=== PATIENT | male | born 1955 | race Caucasian/White ===

== ENCOUNTER → 2021-11-09 08:51 | Outpatient (BNVA) | payer OTHER, SELFPAY | PROVIDERS: PCP Internal Medicine; Visit Provider Urology ==

== ENCOUNTER 2022-05-22 10:41 | Outpatient (REF) | payer OTHER, SELFPAY ==
[2022-05-22 12:31] LABS: Prostate Specific Antigen 6.23 ng/mL (<0.05-4.0)
== END 2022-05-22 10:42 | disposition home or self-care (01) ==
LOC: HO.LAB 10:41
PROVIDERS: PCP Internal Medicine; Visit Provider Urology
DX: Z12.5 Encounter for screening for malignant neoplasm of prostate (principal); R97.20 Elevated prostate specific antigen [PSA]
CPT/HCPCS: 36415; 84153

== ENCOUNTER 2022-09-21 13:19 | Outpatient (REF) | payer OTHER, SELFPAY ==
[2022-09-21 16:09] LABS: PSA,Total (Free>4and<10) 4.55 ng/mL (0.00-4.00)
[2022-09-26 07:29] LABS: Free Prostate Spec Ag 0.5 ng/mL; Percent Free Prostate Spec Ag 10 % (calc) (>25); Prostate Specific Ag Total 4.8 ng/mL (< OR = 4.0)
== END 2022-09-21 13:20 | disposition home or self-care (01) ==
LOC: HO.LAB 13:19
PROVIDERS: Urology; PCP Internal Medicine; Visit Provider Psychiatry & Neurology Neurology
DX: Z12.5 Encounter for screening for malignant neoplasm of prostate (principal); R97.20 Elevated prostate specific antigen [PSA]
CPT/HCPCS: 36415; 84153; 84154

== ENCOUNTER → 2022-09-29 09:09 | Outpatient (BNVA) | payer OTHER, SELFPAY | PROVIDERS: PCP Internal Medicine; Visit Provider Urology | DX: Z13.89 Encounter for screening for other disorder (principal) ==

== ENCOUNTER 2023-04-17 08:41 | Outpatient (AMB) | payer OTHER, SELFPAY ==
--- NOTE | 2023-04-17 08:49 | MHC.OFFVIS ---
Intake Intake Visit Reasons: 6M PSA(set) Intake Note: Patient is present for Follow Up PSA Urology Med: Finasteride, Sildenafil Antibiotic Allergy:none Blood Thinner: None Allergies No Known Allergies Allergy (Verified 04/17/23 08:49) Medication List - Last Reconciled 04/17/23 by Benny Banegas MD atorvastatin 20 mg PO DAILY finasteride 5 mg PO DAILY 90 days hydrochlorothiazide 25 mg PO DAILY sildenafil 100 mg PO DAILY PRN 30 days HPI HPI Comments History of Present Illness Details Quique is a very pleasant male. He is a patient of Dr. Alexis. He is seen for the following urologic conditions - elevated PSA - erectile dysfunction PSA slight rise from 4.5-5.2 On finasteride Recommend prostate MRI Prior equivocal DNA test on urine Elevated PSA Recent PSA test 4.2 with PCP No family history prostate cancer Minimal family history enlarged prostate PSA 11/13 4.2, 05/15 6.2, 12.22 4.5 F10%, , 03/16 5.2 F 12% on finasteride ExoUrine DNA test 10/26 20 Erectile dysfunction Progressive Able to obtain but cannot maintain erection with adequate rigidity No prior use of medications Trial sildenafil Review of Systems Const Denies chills and Denies fever(s) Card Reports no additional complaints and Denies syncope Resp Denies cough GI Denies abdominal pain and Denies heartburn Reports as per HPI and Denies change in libido Neuro Denies syncope Psych Denies change in libido Endo Denies change in libido Physical Exam Const General: cooperative, healthy appearing, comfortable and no acute distress Orientation/consciousness: patient oriented x3 HEENT Face and sinus: Yes normal facial exam Mouth: moist mucous membranes Neck Neck: Yes normal visual inspection, Yes full ROM and Yes trachea midline Chest Chest palpation & inspection: normal inspection of the chest Resp Effort & Inspection: normal respiratory effort, able to speak in complete sentences and no respiratory distress GI Inspection: Yes normal to inspection Back/Spine/Pelvis Cervical Spine: normal cervical lordosis Thoracic/Lumbar Spine: thoracic and lumbar spine normal to inspection Skin General skin exam: no rashes or lesions noted Neuro General: patient oriented x3, gait normal, tone normal and moves all extremities Extrem General: Yes normal to inspection and Yes capillary refill normal Assessment & Plan Assessment & Plan (1) Erectile dysfunction: Code(s): N52.9 - Male erectile dysfunction, unspecified (2) Elevated PSA: Code(s): R97.20 - Elevated prostate specific antigen [PSA] Plan Prostate MRI Orders: Orders Blood Urea Nitrogen Today R97.20 - Elevated prostate specific antigen [PSA] Creatinine Today R97.20 - Elevated prostate specific antigen [PSA] MR pelvis wo/w con Today R97.20 - Elevated prostate specific antigen [PSA] Patient Instructions: Imaging studies, laboratory and physical exam results were discussed and reviewed in detail. No major barriers to patient understanding were identified. An opportunity to ask questions regarding the treatment plan was provided. All questions were answered. The patient expressed understanding and agreement with the above treatment plan. The patient is aware they should contact our office by phone for worsening of their current condition or the appearance of new urologic symptoms. Compliance is encouraged with any medications and followup testing that is ordered. It is a privilege to participate in the urologic care of your patient. If you have any questions or concerns regarding treatment for the above conditions, or other urologic issues, please do not hesitate to contact me. The office telephone contact is [phone]. This note is constructed using voice recognition software. While every effort has been made to ensure accuracy casing crew pusher errors may have been included. Yours sincerely, Dr Benny Banegas MD, [facility] - Urology Providers of Expert, Compassionate Care for the Genitourinary System Coding Level of Care Code Est Pt Level 3 (03100) Diagnoses Erectile dysfunction N52.9 Elevated PSA R97.20
== END 2023-04-17 09:33 | disposition home or self-care (01) ==
PROVIDERS: Visit Provider Urology
DX: N52.9 Male erectile dysfunction, unspecified (principal); R97.20 Elevated prostate specific antigen [PSA]
CPT/HCPCS: 99213

== ENCOUNTER → 2023-04-17 08:41 | Outpatient (BNVA) | payer OTHER, SELFPAY | PROVIDERS: Visit Provider Urology ==

== ENCOUNTER 2023-05-23 08:25 | Outpatient (AMB) | payer OTHER, SELFPAY ==
--- NOTE | 2023-05-23 08:37 | MHC.OFFVIS ---
Intake Intake Visit Reasons: 1m/MRI(set) Intake Note: Patient is present for Follow Up MRI Urology Med: Finasteride, Sildenafil Antibiotic Allergy:None Blood Thinner: None Pharmacy: [facility] Allergies No Known Allergies Allergy (Verified 05/23/23 08:39) Medication List - Last Reconciled 05/23/23 by Benny Banegas MD atorvastatin 20 mg PO DAILY finasteride 5 mg PO DAILY 90 days hydrochlorothiazide 25 mg PO DAILY meloxicam 15 mg PO DAILY sildenafil 100 mg PO DAILY PRN 30 days HPI HPI Comments History of Present Illness Details Quique is a very pleasant male. He is a patient of Dr. Mesa. He is seen for the following urologic conditions - elevated PSA - erectile dysfunction MRI - 30 g, PI-RADS 3 1.6 cm equivocal lesion Discussed options Recommend repeat PSA in 4 months Prior equivocal DNA test on urine Elevated PSA Recent PSA test 4.2 with PCP No family history prostate cancer Minimal family history enlarged prostate PSA 11/13 4.2, 05/15 6.2, 09/14 4.5 F10%, , 03/16 5.2 F 12% on finasteride ExoUrine DNA test 10/26 20 Erectile dysfunction Progressive Able to obtain but cannot maintain erection with adequate rigidity No prior use of medications Trial sildenafil Review of Systems Const Denies chills and Denies fever(s) Card Reports no additional complaints and Denies syncope Resp Denies cough GI Denies abdominal pain and Denies heartburn Reports as per HPI and Denies change in libido Neuro Denies syncope Psych Denies change in libido Endo Denies change in libido Physical Exam Const General: cooperative, healthy appearing, comfortable and no acute distress Orientation/consciousness: patient oriented x3 HEENT Face and sinus: Yes normal facial exam Mouth: moist mucous membranes Neck Neck: Yes normal visual inspection, Yes full ROM and Yes trachea midline Chest Chest palpation & inspection: normal inspection of the chest Resp Effort & Inspection: normal respiratory effort, able to speak in complete sentences and no respiratory distress GI Inspection: Yes normal to inspection Back/Spine/Pelvis Cervical Spine: normal cervical lordosis Thoracic/Lumbar Spine: thoracic and lumbar spine normal to inspection Skin General skin exam: no rashes or lesions noted Neuro General: patient oriented x3, gait normal, tone normal and moves all extremities Extrem General: Yes normal to inspection and Yes capillary refill normal Assessment & Plan Assessment & Plan (1) Elevated PSA: Code(s): R97.20 - Elevated prostate specific antigen [PSA] (2) Erectile dysfunction: Code(s): N52.9 - Male erectile dysfunction, unspecified Plan Four month follow-up PSA Orders: Orders PSA,Total (Free>4and<10) 4 Months R97.20 - Elevated prostate specific antigen [PSA] Patient Instructions: Imaging studies, laboratory and physical exam results were discussed and reviewed in detail. No major barriers to patient understanding were identified. An opportunity to ask questions regarding the treatment plan was provided. All questions were answered. The patient expressed understanding and agreement with the above treatment plan. The patient is aware they should contact our office by phone for worsening of their current condition or the appearance of new urologic symptoms. Compliance is encouraged with any medications and followup testing that is ordered. It is a privilege to participate in the urologic care of your patient. If you have any questions or concerns regarding treatment for the above conditions, or other urologic issues, please do not hesitate to contact me. The office telephone contact is [phone]. This note is constructed using voice recognition software. While every effort has been made to ensure accuracy cascade operator errors may have been included. Yours sincerely, Dr Benny Banegas MD, [facility] - Urology Providers of Expert, Compassionate Care for the Genitourinary System Coding Level of Care Code Est Pt Level 3 (28701) Diagnoses Elevated PSA R97.20 Erectile dysfunction N52.9
== END 2023-05-23 09:29 | disposition home or self-care (01) ==
PROVIDERS: PCP Internal Medicine; Visit Provider Urology
DX: R97.20 Elevated prostate specific antigen [PSA] (principal); N52.9 Male erectile dysfunction, unspecified
CPT/HCPCS: 99213

== ENCOUNTER → 2023-05-23 08:25 | Outpatient (BNVA) | payer OTHER, SELFPAY | PROVIDERS: PCP Internal Medicine; Visit Provider Urology ==

== ENCOUNTER 2023-09-03 07:35 | Outpatient (REF) | payer OTHER, SELFPAY ==
[2023-09-03 08:51] LABS: Blood Urea Nitrogen 19 mg/dL (9-16); Estimated Glomerular Filt Rate > 60
[2023-09-03 09:14] LABS: PSA,Total (Free>4and<10) 3.78 ng/mL (0.00-4.00)
== END 2023-09-03 07:36 | disposition home or self-care (01) ==
LOC: HO.LAB 07:35
PROVIDERS: PCP Physician Assistant; Visit Provider Urology
DX: Z12.5 Encounter for screening for malignant neoplasm of prostate (principal); R97.20 Elevated prostate specific antigen [PSA]
CPT/HCPCS: 36415; 82565; 84153; 84520

== ENCOUNTER 2023-09-11 10:26 | Outpatient (AMB) | payer OTHER, SELFPAY ==
--- NOTE | 2023-09-11 10:28 | MHC.OFFVIS ---
Intake Intake Visit Reasons: 4m/PSA(set) Intake Note: Patient is Present for Telephone Follow Up For Urology Med: Finasteride, Sildenafil Antibiotic Allergy: None Blood Thinner: None Allergies No Known Allergies Allergy (Verified 09/11/23 10:30) Medication List - Last Reconciled 09/11/23 by Benny Banegas MD atorvastatin 20 mg PO DAILY finasteride 5 mg PO DAILY 90 days hydrochlorothiazide 25 mg PO DAILY meloxicam 15 mg PO DAILY sildenafil 100 mg PO DAILY PRN 30 days HPI HPI Comments History of Present Illness Details Quique is a very pleasant male. He is a patient of Dr. Mesa. He is seen for the following urologic conditions - elevated PSA - erectile dysfunction Telemedicine Evaluation 15 min Consultation [employer] Vilma Video PSA 09/15 3.8 Stable Continue finasteride 6 month follow-up MRI - 30 g, PI-RADS 3 1.6 cm equivocal lesion Prior equivocal DNA test on urine Elevated PSA Recent PSA test 4.2 with PCP No family history prostate cancer Minimal family history enlarged prostate PSA 11/13 4.2, 05/15 6.2, 09/14 4.5 F10%, 03/16 5.2 F 12% on finasteride ExoUrine DNA test 10/26 20 Erectile dysfunction Progressive Able to obtain but cannot maintain erection with adequate rigidity No prior use of medications Trial sildenafil Review of Systems Const All systems reviewed & are unremarkable except as noted in HPI and below Reports no additional complaints Resp Reports no additional complaints GI Reports no additional complaints Reports as per HPI Musc Reports no additional complaints Physical Exam Telemedicine evaluation Appropriate responses Regular breathing rate and rhythm HEENT Head: Yes normal to inspection Ears: hearing grossly normal bilaterally Eyes General: appearance normal, both eyes and all related structures Neck Neck: Yes normal visual inspection Chest Chest palpation & inspection: normal inspection of the chest Resp Effort & Inspection: normal respiratory effort and able to speak in complete sentences Assessment & Plan Assessment & Plan (1) Erectile dysfunction: Code(s): N52.9 - Male erectile dysfunction, unspecified (2) Elevated PSA: Code(s): R97.20 - Elevated prostate specific antigen [PSA] Plan 6m PSA Medications: Refilled finasteride 5 mg PO DAILY 90 tabs 1RF 90 days C61 - Malignant neoplasm of prostate, R97.20 - Elevated prostate specific antigen [PSA] Patient Instructions: Imaging studies, laboratory and physical exam results were discussed and reviewed in detail. No major barriers to patient understanding were identified. An opportunity to ask questions regarding the treatment plan was provided. All questions were answered. The patient expressed understanding and agreement with the above treatment plan. The patient is aware they should contact our office by phone for worsening of their current condition or the appearance of new urologic symptoms. Compliance is encouraged with any medications and followup testing that is ordered. It is a privilege to participate in the urologic care of your patient. If you have any questions or concerns regarding treatment for the above conditions, or other urologic issues, please do not hesitate to contact me. The office telephone contact is [phone]. This note is constructed using voice recognition software. While every effort has been made to ensure accuracy surgical garment fitter errors may have been included. Yours sincerely, Dr Benny Banegas MD, [facility] - Urology Providers of Expert, Compassionate Care for the Genitourinary System Telehealth Telehealth Location of provider rendering services: practice address Location of patient: address on file Patient Identification confirmed using: Name, : Yes Telehealth method: video Patient verbally consented to treatment: Yes Patient verbally consented to billing insurance company: Yes Patient informed of any privacy concerns related to visit: Yes Coding Level of Care Code Tele Est Pt Level 3 (32912) Diagnoses Erectile dysfunction N52.9 Elevated PSA R97.20
== END 2023-09-11 11:16 | disposition home or self-care (01) ==
LOC: HO.HUSH 10:26
PROVIDERS: PCP Physician Assistant; Visit Provider Urology
DX: N52.9 Male erectile dysfunction, unspecified (principal); R97.20 Elevated prostate specific antigen [PSA]
CPT/HCPCS: 99213

== ENCOUNTER → 2023-09-11 10:26 | Outpatient (BNVA) | payer OTHER, SELFPAY | PROVIDERS: PCP Physician Assistant; Visit Provider Urology ==

== ENCOUNTER 2024-03-06 15:32 | Outpatient (REF) | payer OTHER, SELFPAY | END 2024-03-06 15:33 | disposition home or self-care (01) | LOC: HO.LAB 15:32 | PROVIDERS: PCP Physician Assistant; Visit Provider Urology | DX: R97.20 Elevated prostate specific antigen [PSA] (principal); Z12.5 Encounter for screening for malignant neoplasm of prostate | CPT/HCPCS: 36415; 84153 ==

== ENCOUNTER 2024-03-14 10:44 | Outpatient (AMB) | payer OTHER, SELFPAY ==
--- NOTE | 2024-03-14 10:44 | MHC.OFFVIS ---
Intake Visit Reasons: 6m/PSA(set) Intake Note: Pt presents to the office today for a 6 month PSA follow up. Urology Meds:finasteride, sildenafil Blood thinners: None Allergies No Known Allergies Allergy (Verified 03/14/24 10:45) HPI Comments Details: Quique is a very pleasant male. He is a patient of Dr. Mesa. He is seen for the following urologic conditions - elevated PSA - erectile dysfunction PSA 09/15 3.8, 03/17 3.0 Stable Continue finasteride 6 month follow-up MRI - 30 g, PI-RADS 3 1.6 cm equivocal lesion Prior equivocal DNA test on urine Elevated PSA Recent PSA test 4.2 with PCP No family history prostate cancer Minimal family history enlarged prostate PSA 11/13 4.2, 05/15 6.2, 09/14 4.5 F10%, 03/16 5.2 F 12% on finasteride ExoUrine DNA test 10/26 20 Erectile dysfunction Progressive Able to obtain but cannot maintain erection with adequate rigidity No prior use of medications Trial sildenafil Review of Systems Const Denies chills and Denies fever(s) Card Reports no additional complaints and Denies syncope Resp Denies cough GI Denies abdominal pain and Denies heartburn Reports as per HPI and Denies change in libido Neuro Denies syncope Psych Denies change in libido Endo Denies change in libido Physical Exam Const General: cooperative, healthy appearing, comfortable and no acute distress Orientation/consciousness: patient oriented x3 HEENT Face and sinus: Yes normal facial exam Mouth: moist mucous membranes Neck Neck: Yes normal visual inspection, Yes full ROM and Yes trachea midline Chest Chest palpation & inspection: normal inspection of the chest Resp Effort & Inspection: normal respiratory effort, able to speak in complete sentences and no respiratory distress GI Inspection: Yes normal to inspection Back/Spine/Pelvis Cervical Spine: normal cervical lordosis Thoracic/Lumbar Spine: thoracic and lumbar spine normal to inspection Skin General skin exam: no rashes or lesions noted Neuro General: patient oriented x3, gait normal, tone normal and moves all extremities Extrem General: Yes normal to inspection and Yes capillary refill normal Assessment & Plan Assessment & Plan (1) Erectile dysfunction: Code(s): N52.9 - Male erectile dysfunction, unspecified Category: Medical (2) Elevated PSA: Code(s): R97.20 - Elevated prostate specific antigen [PSA] Category: Medical Plan Six-month follow-up PSA tele Orders: Orders Prostate Specific Antigen 6 Months R97.20 - Elevated prostate specific antigen [PSA] Patient Instructions: Imaging studies, laboratory and physical exam results were discussed and reviewed in detail. No major barriers to patient understanding were identified. An opportunity to ask questions regarding the treatment plan was provided. All questions were answered. The patient expressed understanding and agreement with the above treatment plan. The patient is aware they should contact our office by phone for worsening of their current condition or the appearance of new urologic symptoms. Compliance is encouraged with any medications and followup testing that is ordered. It is a privilege to participate in the urologic care of your patient. If you have any questions or concerns regarding treatment for the above conditions, or other urologic issues, please do not hesitate to contact me. The office telephone contact is [phone]. This note is constructed using voice recognition software. While every effort has been made to ensure accuracy geospatial systems integrator errors may have been included. Yours sincerely, Dr Benny Banegas MD, [facility] - Urology Providers of Expert, Compassionate Care for the Genitourinary System Coding Level of Care Code Est Pt Level 3 (44512) Diagnoses Erectile dysfunction N52.9 Elevated PSA R97.20
== END 2024-03-14 11:43 | disposition home or self-care (01) ==
PROVIDERS: PCP Physician Assistant; Visit Provider Urology
DX: N52.9 Male erectile dysfunction, unspecified (principal); R97.20 Elevated prostate specific antigen [PSA]
CPT/HCPCS: 99213

== ENCOUNTER → 2024-03-14 10:44 | Outpatient (BNVA) | payer OTHER, SELFPAY | PROVIDERS: PCP Physician Assistant; Visit Provider Urology ==

== ENCOUNTER 2024-09-05 12:02 | Outpatient (REF) | payer OTHER, SELFPAY ==
[2024-09-05 13:56] LABS: Prostate Specific Antigen 4.04 ng/mL (<0.05-4.0)
== END 2024-09-05 12:03 | disposition home or self-care (01) ==
LOC: HO.LAB 12:02
PROVIDERS: PCP Internal Medicine; Visit Provider Urology
DX: R97.20 Elevated prostate specific antigen [PSA] (principal); Z12.5 Encounter for screening for malignant neoplasm of prostate
CPT/HCPCS: 36415; 84153

== ENCOUNTER 2024-09-12 08:40 | Outpatient (AMB) | payer OTHER, SELFPAY ==
--- NOTE | 2024-09-12 08:41 | A.OFFVIS_ITS ---
Intake Visit Reasons: 6m/PSA Intake Note: Patient is present for 6M/PSA Urology Medication:FINASTERIDE,SILDENAFIL Antibiotic Allergy:NONE Blood Thinner:NONE [employer] Sales Consultant Required: No Allergies No Known Allergies Allergy (Verified 09/12/24 08:42) HPI Comments Details: Quique is a very pleasant male. He is a patient of Dr. Mesa. He is seen for the following urologic conditions - elevated PSA - erectile dysfunction Telemedicine Evaluation 15 min Consultation [employer] Video Discussed slight rise in PSA Did have coffee morning of test and exercise Repeat in 4 months PSA 09/15 3.8, 03/17 3.0 Stable Continue finasteride 6 month follow-up MRI 05/16 - 30 g, PI-RADS 3 1.6 cm equivocal lesion Elevated PSA Recent PSA test 4.2 with PCP No family history prostate cancer Minimal family history enlarged prostate PSA 11/13 4.2, 05/15 6.2, 09/14 4.5 F10%, 03/16 5.2 F 12% on finasteride, 03/17 3.0, 09/16 4.0, ExoUrine DNA test 11/15 20 Erectile dysfunction Progressive Able to obtain but cannot maintain erection with adequate rigidity No prior use of medications Trial sildenafil Review of Systems Const All systems reviewed & are unremarkable except as noted in HPI and below Reports no additional complaints Resp Reports no additional complaints GI Reports no additional complaints Reports as per HPI Musc Reports no additional complaints Physical Exam Telemedicine evaluation Appropriate responses Regular breathing rate and rhythm HEENT Head: Yes normal to inspection Ears: hearing grossly normal bilaterally Eyes General: appearance normal, both eyes and all related structures Neck Neck: Yes normal visual inspection Chest Chest palpation & inspection: normal inspection of the chest Resp Effort & Inspection: normal respiratory effort and able to speak in complete sentences Telehealth Telehealth Location of provider rendering services: practice address Location of patient: address on file Patient Identification confirmed using: Name, : Yes Telehealth method: voice only Patient verbally consented to treatment: Yes Patient verbally consented to billing insurance company: Yes Patient informed of any privacy concerns related to visit: Yes Assessment & Plan Assessment & Plan (1) Elevated PSA: Code(s): R97.20 - Elevated prostate specific antigen [PSA] Category: Medical (2) Erectile dysfunction: Code(s): N52.9 - Male erectile dysfunction, unspecified Category: Medical Plan Four month follow-up check PSA Orders: Orders Prostate Specific Antigen 4 Months R97.20 - Elevated prostate specific antigen [PSA] Patient Instructions: Imaging studies, laboratory and physical exam results were discussed and reviewed in detail. No major barriers to patient understanding were identified. An opportunity to ask questions regarding the treatment plan was provided. All questions were answered. The patient expressed understanding and agreement with the above treatment plan. The patient is aware they should contact our office by phone for worsening of their current condition or the appearance of new urologic symptoms. Compliance is encouraged with any medications and followup testing that is ordered. It is a privilege to participate in the urologic care of your patient. If you have any questions or concerns regarding treatment for the above conditions, or other urologic issues, please do not hesitate to contact me. The office telephone contact is [phone]. This note is constructed using voice recognition software. While every effort has been made to ensure accuracy machine ceramic coater errors may have been included. Yours sincerely, Dr Benny Banegas MD, [facility] - Urology Providers of Expert, Compassionate Care for the Genitourinary System Coding Level of Care Code Tele Est Pt Level 3 (54158) Diagnoses Elevated PSA R97.20 Erectile dysfunction N52.9
== END 2024-09-12 09:10 | disposition home or self-care (01) ==
LOC: HO.HUSH 08:40
PROVIDERS: PCP Internal Medicine; Visit Provider Urology
DX: R97.20 Elevated prostate specific antigen [PSA] (principal); N52.9 Male erectile dysfunction, unspecified
CPT/HCPCS: 99213

== ENCOUNTER 2024-10-20 09:05 | Outpatient (REF) | payer OTHER, SELFPAY ==
[2024-10-20 11:38] LABS: Prostate Specific Antigen 3.28 ng/mL (<0.05-4.0)
--- OUTSIDE RECORDS SUMMARY | 2024-10-20 13:24 | XMS_ITS | Data Portability ---
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 Appears relatively stable compared to 2014. Spouse concerned about potential growth. Patient really not bothered by the mass. Arrange for MRI scan and then we can discuss future treatment if any. Previously it was noted to be near the vertebral artery and the root of C2. [email or web address] Not available 07/04/2024 13:25:51 Plan of Treatment Reminders Order Date Submit Date Provider Last Modified By Organization Details Last Modified Time Details Appointments None recorded. Lab None recorded. Referral None recorded. Procedures None recorded. Surgeries None recorded. Imaging MRI, neck, w/wo contrast 2023 024 [email or web address] [facility], [address] , [facility] [address], [place], [address], 13:41:24 Medication Orders None recorded. Patient TargetsNo targets recorded. Patient InstructionsNo instructions recorded. Reason for Referral None Reported. Results Created Date Observation Date Name Description Value Unit Range Abnormal Flag Note LastModifiedBy Organization Detail LastModifiedTime 08/30/2008/29/2024 MRI, neck, w/ contr ast No observ ation record ed. C[place] [facility] [address] [place] [address], [place], [address], 09/01/2024 08:40:43 09/05/2008/29/2024 MRI, neck, w/ contr ast No observ ation record ed. [facility] [address], [address], 09/05/2024 18:32:42 Result Notes None recorded. Problems Name Problem SNOMED Code Status Onset Date Resolution Date Notes Provider Name and Address Organization Details Recorded Time Mass of neck 708369326 Active 2013 Swelling; mass; or lump in head and neck; CMS Risk: moderate risk Note : Date Diagnosed : 4 10:15 AM (784.2) Not Available [facility] 4 02:45:23 Obstructiv e sleep apnea syndrome 20672703 Active 2013 ALISHA; CMS Risk: moderate risk Note : Date Diagnosed : 4 10:15 AM (327.23) Not Available [facility] 4 02:45:24 Mass of head and/or neck 513538457 Active 2023 ANDI PANTOJA MD [address] [place] [address], [phone] , [place] - [facility] 13:25:18 Problem Notes None recorded. Procedures Surgical History Date Name Laterality Status Provider Name and Address Organization Details Recorded Time mohs surgery completed ANDI DENT MD [address] [place] [address], [phone], [place] - [facility] 07/04/2024 15:18:11 Imaging Results Imaging Date Name Status LastModified by Organiz ation Details LastModified Time 08/29/2024 MRI, neck, w/ contrast completed [place] [facility] [address] [address], [place], [address], 09/01/2024 08:40:43 08/29/2024 MRI, neck, w/ contrast completed [facility] [address], [address], 09/05/2024 18:32:42 Procedure Notes None recorded. Medical Equipment None Reported. Medications Name Sig Start Date Stop Date Status Note LastModified by Organization Details LastModified Time atorvastatin 20 mg tablet TAKE 1 TABLET BY MOUTH EVERY DAY FOR 90 DAYS active Not Available Not Available No t Available hydrochloroth iazide 25 mg tablet TAKE 1 TABLET BY MOUTH EVERY DAY FOR 90 DAYS active Not Available Not Available No t Available doxycycline hyclate 100 mg tablet TAKE 1 TABLET BY MOUTH TWICE A DAY X 5 DAYS WITH FOOD AND A GLASS OF WATER 07/04 completed Not Available Not Available Not Available finasteride 5 mg tablet TAKE 1 TABLET BY MOUTH DAILY active Not Available Not Available No t Available amoxicillin 875 mg-potassium clavulanate 125 mg tablet TAKE 1 TABLET BY MOUTH EVERY 12 HOURS FOR 7 DAYS 07/04 completed Not Available Not Available Not Available Vitals Date Recorded Body height Body mass index (BMI) Body weight Provider Name and Address Organization Details Last Updated DateTime 07/04/2024 185.42 cm 31.9 kg/m2 159552.35 g José Miguel Talavera [place] - [facility] 07/04/2024 13:01:43 Social History None recorded. Functional Status None recorded. Mental Status None recorded. Family History Nothing Reported. Medical History Condition Response Cancer Y Arthritis Y Hypertension Y Past Encounters Encounter ID Performer Location Encounter Start Date Encounter Closed Date Diagnosis/Indication Diagnosis SNOMED-CT Code Diagnosis ICD10 Code Diagnosis Note [id number] ANDI PANTOJA MD [facility] [address] [address] 07/04/2024 12:53:10 07/04/2024 13:28:30 Mass of head and/or neck 178710278 R22.1 Obstructiv e sleep apnea syndrome 10715545 G47.33 has declined CPAP. Consider dental appliance Health Concerns Section Related Observation LastModified by Organization Detai ls LastModified Time None Recorded Concern Status LastModified by Organization Details LastModified Time None Recorded Advance Directives Directive None Recorded Payers Encounter Date Sequence Insurance Name Policy Number Policy Fenton Covered Member ID Fenton Member ID Guarantor Name 07/04/2024 1 [facility] [id number] Quique Montano [id number] Quique Montano Notes Date Note Type Note Provider Name and Address Organization Details Recorded Time 07/04/2024 text/html Hx of posterior cervical lipoma 2013 CT scan shows an 8 x 4 cm posterior neck lipoma that is close to the vertebral artery and root of C2. It is stable compared to January of 2011. Other than cosmesis and needing a larger shirt next size, he is not having any pain or discomfort. ANDI DENT MD [address] [place] [address], [phone], [place] - [facility] 07/04/2024 15:18:21
== END 2024-10-20 09:06 | disposition home or self-care (01) ==
LOC: HO.LAB 09:05
PROVIDERS: PCP Internal Medicine; Visit Provider Urology
DX: R97.20 Elevated prostate specific antigen [PSA] (principal); Z12.5 Encounter for screening for malignant neoplasm of prostate
CPT/HCPCS: 36415; 84153

== ENCOUNTER 2024-10-22 10:09 | Outpatient (AMB) | payer OTHER, SELFPAY ==
--- NOTE | 2024-10-22 10:11 | A.OFFVIS_ITS ---
Intake Visit Reasons: PSA Results(set) Intake Note: Patient is present for PSA RESULTS Urology Medication:FINASTERIDE,SILDENAFIL Antibiotic Allergy:NONE Blood Thinner:NONE Research Physiologist Required: No Allergies No Known Allergies Allergy (Verified 10/22/24 10:12) HPI Comments Details: Quique is a very pleasant male. He is a patient of Dr. Mesa. He is seen for the following urologic conditions - elevated PSA - erectile dysfunction And tadalafil for bladder instability Three-month follow-up PSA 09/15 3.8, 03/17 3.0, 10/18 3.3 Stable Continue finasteride MRI 05/16 - 30 g, PI-RADS 3 1.6 cm equivocal lesion Elevated PSA Recent PSA test 4.2 with PCP No family history prostate cancer Minimal family history enlarged prostate PSA 11/13 4.2, 05/15 6.2, 09/14 4.5 F10%, 03/16 5.2 F 12% on finasteride, 03/17 3.0, 09/16 4.0, ExoUrine DNA test 11/15 20 Erectile dysfunction Progressive Able to obtain but cannot maintain erection with adequate rigidity No prior use of medications Trial sildenafil Review of Systems Const Denies chills and Denies fever(s) Card Reports no additional complaints and Denies syncope Resp Denies cough GI Denies abdominal pain and Denies heartburn Reports as per HPI and Denies change in libido Neuro Denies syncope Psych Denies change in libido Endo Denies change in libido Physical Exam Const General: cooperative, healthy appearing, comfortable and no acute distress Orientation/consciousness: patient oriented x3 HEENT Face and sinus: Yes normal facial exam Mouth: moist mucous membranes Neck Neck: Yes normal visual inspection, Yes full ROM and Yes trachea midline Chest Chest palpation & inspection: normal inspection of the chest Resp Effort & Inspection: normal respiratory effort, able to speak in complete sentences and no respiratory distress GI Inspection: Yes normal to inspection Back/Spine/Pelvis Cervical Spine: normal cervical lordosis Thoracic/Lumbar Spine: thoracic and lumbar spine normal to inspection Skin General skin exam: no rashes or lesions noted Neuro General: patient oriented x3, gait normal, tone normal and moves all extremities Extrem General: Yes normal to inspection and Yes capillary refill normal Assessment & Plan Assessment & Plan (1) Bladder instability: Code(s): N32.89 - Other specified disorders of bladder Category: Medical Plan Daily tadalafil Three-month follow-up lab work Medications: New tadalafil BIN N Group [facility] DR33 [id number] 5 mg PO DAILY 90 tabs 0RF Bladder instability 90 days N32.89 - Other specified disorders of bladder Patient Instructions: This note is constructed using voice recognition software. While every effort has been made to ensure accuracy photonics technician errors may have been included. Imaging studies, laboratory and physical exam results were discussed and reviewed in detail. No major barriers to patient understanding were identified. An opportunity to ask questions regarding the treatment plan was provided. All questions were answered. The patient expressed understanding and agreement with the above treatment plan. The patient is aware they should contact our office by phone for worsening of their current condition or the appearance of new urologic symptoms. Compliance is encouraged with any medications and followup testing that is ordered. It is a privilege to participate in the urologic care of your patient. If you have any questions or concerns regarding treatment for the above conditions, or other urologic issues, please do not hesitate to contact me. The office telephone contact is [phone]. Sincerely, Dr Benny Baengas MD, [facility] - Urology Compassionate Specialist Care for the Genitourinary System Coding Level of Care Code Est Pt Level 4 (23126) Diagnoses Bladder instability N32.89
--- OUTSIDE RECORDS SUMMARY | 2024-10-22 12:05 | XMS_ITS | Data Portability ---
Author Organization [place] - [facility], Allergy Address [address] [place] [phone] Care Team Providers Care Group Fitness Manager Name Role Phone GIANGJUAN TRIVEDIREN Primary Care [...] Imaging MRI, neck, w/wo contrast 2023 024 [email or web address] [facility], [address] , [facility] [address], [place], [address], 13:41:24 Medication Orders None recorded. Patient TargetsNo targets recorded. Patient InstructionsNo instructions recorded. Reason for Referral None Reported. Results Created Date Observation Date Name Description Value Unit Range Abnormal Flag Note LastModifiedBy Organization Detail LastModifiedTime 08/30/2008/29/2024 MRI, neck, w/ contr ast No observ ation record ed. [place] [facility] [address] [address], [place], [address], 09/01/2024 08:40:43 09/05/2008/29/2024 MRI, neck, w/ contr ast No observ ation record ed. [facility] [address], [address], 09/05/2024 18:32:42 Result Notes None recorded. Problems Name Problem SNOMED Code Status Onset Date Resolution Date Notes Provider Name and Address Organization Details Recorded Time Mass of neck 071469619 Active 2013 Swelling; mass; or lump in head and neck; CMS Risk: moderate risk Note : Date Diagnosed : 4 10:15 AM (784.2) Not Available [facility] 4 02:45:23 Obstructiv e sleep apnea syndrome 53487977 Active 2013 ALISHA; CMS Risk: moderate risk Note : Date Diagnosed : 4 10:15 AM (327.23) Not Available [facility] 4 02:45:24 Mass of head and/or neck 123530404 Active 2023 ANDI PANTOJA MD [address] [place] [address], [phone] , [place] - [facility] 13:25:18 Problem Notes None recorded. Procedures Surgical History Date Name Laterality Status Provider Name and Address Organization Details Recorded Time mohs surgery completed ANDI DENT MD [address] [place] [address], [phone], [place] - [facility] 07/04/2024 15:18:11 Imaging Results Imaging Date Name Status LastModified by Organiz ation Details LastModified Time 08/29/2024 MRI, neck, w/ contrast completed [place] [facility] [address] [address], [place], [address], 09/01/2024 08:40:43 08/29/2024 MRI, neck, w/ contrast completed [facility] [address], [address], 09/05/2024 18:32:42 Procedure Notes None recorded. Medical [...] Updated DateTime 07/04/2024 185.42 cm 31.9 kg/m2 054378.35 g José Miguel Talavera [place] - [facility] 07/04/2024 13:01:43 Social History None recorded. Functional Status None recorded. Mental Status None recorded. Family History Nothing Reported. Medical History Condition Response Cancer Y Arthritis Y Hypertension Y Past Encounters Encounter ID Performer Location Encounter Start Date Encounter Closed Date Diagnosis/Indication Diagnosis SNOMED-CT Code Diagnosis ICD10 Code Diagnosis Note [id number] ANDI PANTOJA MD [facility] [address] [address] 07/04/2024 12:53:10 07/04/2024 13:28:30 Mass of head and/or neck 517600985 R22.1 Obstructiv e sleep apnea syndrome 73326972 G47.33 has declined CPAP. Consider dental appliance Health Concerns Section Related Observation LastModified by Organization Detai ls LastModified Time None Recorded Concern Status LastModified by Organization Details LastModified Time None Recorded Advance Directives Directive None Recorded Payers Encounter Date Sequence Insurance Name Policy Number Policy Fenton Covered Member ID Fenton Member ID Guarantor Name 07/04/2024 1 [facility] ([facility] [place] [id number] Quique Montano [id number] Quique Montano Notes Date Note Type Note [...] any pain or discomfort. ANDI DENT MD [address] [place] [address], [phone], [place] - [facility] 07/04/2024 15:18:21
== END 2024-10-22 11:21 | disposition home or self-care (01) ==
PROVIDERS: PCP Internal Medicine; Visit Provider Urology
DX: N32.89 Other specified disorders of bladder (principal)
CPT/HCPCS: 99214

== ENCOUNTER → 2024-10-22 10:09 | Outpatient (BNVA) | payer OTHER, SELFPAY | PROVIDERS: PCP Internal Medicine; Visit Provider Urology ==

== ENCOUNTER 2025-01-19 13:52 | Outpatient (REF) | payer OTHER, SELFPAY ==
[2025-01-19 15:15] LABS: Prostate Specific Antigen 2.79 ng/mL (<0.05-4.0)
== END 2025-01-19 13:53 | disposition home or self-care (01) ==
LOC: HO.LAB 13:52
PROVIDERS: PCP Internal Medicine; Visit Provider Urology
DX: R97.20 Elevated prostate specific antigen [PSA] (principal); Z12.5 Encounter for screening for malignant neoplasm of prostate
CPT/HCPCS: 36415; 84153

== ENCOUNTER 2025-01-21 08:35 | Outpatient (AMB) | payer OTHER, SELFPAY ==
--- NOTE | 2025-01-21 08:35 | A.OFFVIS_ITS ---
Intake Visit Reasons: 3m/psa Intake Note: Patient is present for 3M/PSA Urology Medication:FINASTERIDE,TADALAFIL Antibiotic Allergy:NONE Blood Thinner:NONE Improvement Nurse Required: No Allergies No Known Allergies Allergy (Verified 01/21/25 08:36) HPI Comments Details: Quique is a very pleasant male. He is a patient of Dr. Mesa. He is seen for the following urologic conditions - elevated PSA - erectile dysfunction Telemedicine Evaluation 15 min Consultation [employer] Vilma Video Good response to tadalafil for bladder stability - taking medication at 19:00 Refill medication new line appropriate decline in PSA Continue six-month surveillance PSA 09/15 3.8, 03/17 3.0, 10/18 3.3, 01/16 2.8 Stable Continue finasteride MRI 05/16 - 30 g, PI-RADS 3 1.6 cm equivocal lesion Elevated PSA Recent PSA test 4.2 with PCP No family history prostate cancer Minimal family history enlarged prostate PSA 11/13 4.2, 05/15 6.2, 09/14 4.5 F10%, 03/16 5.2 F 12% on finasteride, 03/17 3.0, 09/16 4.0, 10/18 3.3, 01/16 2.8 ExoUrine DNA test 11/15 20 Erectile dysfunction Progressive Able to obtain but cannot maintain erection with adequate rigidity No prior use of medications Trial sildenafil Review of Systems Const All systems reviewed & are unremarkable except as noted in HPI and below Denies chills and Denies fever(s) Card Reports no additional complaints and Denies syncope Resp Denies cough GI Denies abdominal pain and Denies heartburn Reports as per HPI and Denies change in libido Musc Reports no additional complaints Neuro Denies syncope Psych Denies change in libido Endo Denies change in libido Physical Exam Telemedicine evaluation Appropriate responses Regular breathing rate and rhythm Const General: cooperative, healthy appearing, comfortable and no acute distress Orientation/consciousness: patient oriented x3 HEENT Head: Yes normal to inspection Ears: hearing grossly normal bilaterally Face and sinus: Yes normal facial exam Mouth: moist mucous membranes Eyes General: appearance normal, both eyes and all related structures Neck Neck: Yes normal visual inspection, Yes full ROM and Yes trachea midline Chest Chest palpation & inspection: normal inspection of the chest Resp Effort & Inspection: normal respiratory effort, able to speak in complete sentences and no respiratory distress GI Inspection: Yes normal to inspection Back/Spine/Pelvis Cervical Spine: normal cervical lordosis Thoracic/Lumbar Spine: thoracic and lumbar spine normal to inspection Skin General skin exam: no rashes or lesions noted Neuro General: patient oriented x3, gait normal, tone normal and moves all extremities Extrem General: Yes normal to inspection and Yes capillary refill normal Telehealth Telehealth Location of provider rendering services: practice address Location of patient: address on file Patient Identification confirmed using: Name, : Yes Telehealth method: voice only Patient verbally consented to treatment: Yes Patient verbally consented to billing insurance company: Yes Patient informed of any privacy concerns related to visit: Yes Assessment & Plan Assessment & Plan (1) Erectile dysfunction: Code(s): N52.9 - Male erectile dysfunction, unspecified Category: Medical (2) Bladder instability: Code(s): N32.89 - Other specified disorders of bladder Category: Medical (3) Elevated PSA: Code(s): R97.20 - Elevated prostate specific antigen [PSA] Category: Medical Plan Six-month follow-up PSA Refill tadalafil Orders: Orders Prostate Specific Antigen 6 Months R97.20 - Elevated prostate specific antigen [PSA] Medications: Refilled tadalafil BIN N Group [facility] DR33 [id number] 5 mg PO DAILY 90 days 90 tabs 1RF Bladder instability N32.89 - Other specified disorders of bladder Patient Instructions: This note is constructed using voice recognition software. While every effort has been made to ensure accuracy regulatory manager errors may have been included. Imaging studies, laboratory and physical exam results were discussed and reviewed in detail. No major barriers to patient understanding were identified. An opportunity to ask questions regarding the treatment plan was provided. All questions were answered. The patient expressed understanding and agreement with the above treatment plan. The patient is aware they should contact our office by phone for worsening of their current condition or the appearance of new urologic symptoms. Compliance is encouraged with any medications and followup testing that is ordered. It is a privilege to participate in the urologic care of your patient. If you have any questions or concerns regarding treatment for the above conditions, or other urologic issues, please do not hesitate to contact me. The office telephone contact is [phone]. Sincerely, Dr Benny Banegas MD, [facility] - Urology Compassionate Specialist Care for the Genitourinary System Coding Level of Care Code Tele Est Pt Level 3 (96626) Complex EM visit Add On G2211 Diagnoses Erectile dysfunction N52.9 Bladder instability N32.89 Elevated PSA R97.20
--- OUTSIDE RECORDS SUMMARY | 2025-01-21 08:50 | XMS_ITS | Data Portability ---
Author Organization [place] - [facility], Allergy Address [address] [place] [phone] Care Team Providers Care Girls Tennis Coach Name Role Phone GIANGJUAN TRIVEDIREN Primary Care [...] Imaging MRI, neck, w/wo contrast 2023 024 [email or web address] [facility], [address] , [facility] [address], [place], [address], 13:41:24 Medication Orders None recorded. Patient TargetsNo targets recorded. Patient InstructionsNo instructions recorded. Reason for Referral None Reported. Results Created Date Observation Date Name Description Value Unit Range Abnormal Flag Note LastModifiedBy Organization Detail LastModifiedTime 08/30/2008/29/2024 MRI, neck, w/ contr ast No observ ation record ed. [place] [facility] [address], [place], [address], 09/01/2024 08:40:43 09/05/2008/29/2024 MRI, neck, w/ contr ast No observ ation record ed. [facility] [address], [address], 09/05/2024 18:32:42 Result Notes None recorded. Problems Name Problem SNOMED Code Status Onset Date Resolution Date Notes Provider Name and Address Organization Details Recorded Time Mass of neck 584566010 Active 2013 Swelling; mass; or lump in head and neck; CMS Risk: moderate risk Note : Date Diagnosed : 4 10:15 AM (784.2) Not Available [facility] 4 02:45:23 Obstructiv e sleep apnea syndrome 75556295 Active 2013 ALISHA; CMS Risk: moderate risk Note : Date Diagnosed : 4 10:15 AM (327.23) Not Available [facility] 4 02:45:24 Mass of head and/or neck 552305783 Active 2023 ANDI PANTOJA MD [address] [place] [address], [phone] , [place] - [facility] 13:25:18 Problem Notes None recorded. Procedures Surgical History Date Name Laterality Status Provider Name and Address Organization Details Recorded Time mohs surgery completed ANDI DENT MD [address] [place] [address], [phone], [place] - [facility] 07/04/2024 15:18:11 Imaging Results Imaging Date Name Status LastModified by Organiz ation Details LastModified Time 08/29/2024 MRI, neck, w/ contrast completed [place] [facility] [address] [address], [place], [address], 09/01/2024 08:40:43 08/29/2024 MRI, neck, w/ contrast completed [facility] [address], [address], 09/05/2024 18:32:42 Procedure Notes None recorded. Medical [...] Updated DateTime 07/04/2024 185.42 cm 31.9 kg/m2 771666.35 g José Miguel Talavera [place] - [facility] 07/04/2024 13:01:43 Social History None recorded. Functional Status None recorded. Mental Status None recorded. Family History Nothing Reported. Medical History Condition Response Cancer Y Arthritis Y Hypertension Y Past Encounters Encounter ID Performer Location Encounter Start Date Encounter Closed Date Diagnosis/Indication Diagnosis SNOMED-CT Code Diagnosis ICD10 Code Diagnosis Note [id number] ANDI PANTOJA MD [facility] [address] [address] 07/04/2024 12:53:10 07/04/2024 13:28:30 Mass of head and/or neck 684332683 R22.1 Obstructiv e sleep apnea syndrome 28923120 G47.33 has declined CPAP. Consider dental appliance Health Concerns Section Related Observation LastModified by Organization Detai ls LastModified Time None Recorded Concern Status LastModified by Organization Details LastModified Time None Recorded Advance Directives Directive None Recorded Payers Encounter Date Sequence Insurance Name Policy Number Policy Fenton Covered Member ID Fenton Member ID Guarantor Name 07/04/2024 1 [facility] [place] [facility] [id number] Quique Montano [id number] Quique Montano Notes Date Note Type Note [...] any pain or discomfort. ANDI DENT MD [address] [place] [address], [phone], [place] [facility] 07/04/2024 15:18:21
== END 2025-01-21 09:44 | disposition home or self-care (01) ==
LOC: HO.HUSH 08:35
PROVIDERS: PCP Internal Medicine; Visit Provider Urology
DX: N52.9 Male erectile dysfunction, unspecified (principal); N32.89 Other specified disorders of bladder; R97.20 Elevated prostate specific antigen [PSA]
CPT/HCPCS: 99213

== ENCOUNTER 2025-07-13 11:34 | Outpatient (REF) | payer OTHER, SELFPAY ==
[2025-07-13 12:44] LABS: Prostate Specific Antigen 4.09 ng/mL (<0.05-4.0)
== END 2025-07-13 11:35 | disposition home or self-care (01) ==
LOC: HO.LAB 11:34
PROVIDERS: PCP Internal Medicine; Visit Provider Urology
DX: R97.20 Elevated prostate specific antigen [PSA] (principal); Z12.5 Encounter for screening for malignant neoplasm of prostate
CPT/HCPCS: 36415; 84153

== ENCOUNTER 2025-07-23 08:33 | Outpatient (AMB) | payer OTHER, SELFPAY ==
--- NOTE | 2025-07-23 08:52 | MHC.OFFVIS ---
Intake Visit Reasons: 6M follow up/ PSA Intake Note: Patient is present for 6M follow up Urology Medication:FINASTERIDE,TADALAFIL, Antibiotic Allergy:NONE Blood Thinner:NONE Labs done 07/13/25 : PSA 4.09 PVR 120 mls Collection Support Specialist Required: No Accompanied by: Self / Same As Patient Allergies No Known Allergies Allergy (Verified 07/23/25 08:53) HPI Comments Details: Quique is a very pleasant male. He is a patient of Dr. Mesa. He is seen for the following urologic conditions - elevated PSA - erectile dysfunction Good response to tadalafil for bladder stability - taking medication at 19:00 Continue six-month surveillance PSA 09/15 3.8, 03/17 3.0, 10/18 3.3, 01/16 2.8, 07/18 4.1 Stable Continue finasteride MRI 05/16 - 30 g, PI-RADS 3 1.6 cm equivocal lesion Elevated PSA Recent PSA test 4.2 with PCP No family history prostate cancer Minimal family history enlarged prostate PSA 11/13 4.2, 05/15 6.2, 09/14 4.5 F10%, 03/16 5.2 F 12% on finasteride, 03/17 3.0, 09/16 4.0, 10/18 3.3, 01/16 2.8, 07/18 4 ExoUrine DNA test 11/15 20 Erectile dysfunction Progressive Able to obtain but cannot maintain erection with adequate rigidity No prior use of medications Trial sildenafil Review of Systems Const Denies chills and Denies fever(s) Card Reports no additional complaints and Denies syncope Resp Denies cough GI Denies abdominal pain and Denies heartburn Reports as per HPI and Denies change in libido Neuro Denies syncope Psych Denies change in libido Endo Denies change in libido Physical Exam Const General: cooperative, healthy appearing, comfortable and no acute distress Orientation/consciousness: patient oriented x3 HEENT Face and sinus: Yes normal facial exam Mouth: moist mucous membranes Neck Neck: Yes normal visual inspection, Yes full ROM and Yes trachea midline Chest Chest palpation & inspection: normal inspection of the chest Resp Effort & Inspection: normal respiratory effort, able to speak in complete sentences and no respiratory distress GI Inspection: Yes normal to inspection Back/Spine/Pelvis Cervical Spine: normal cervical lordosis Thoracic/Lumbar Spine: thoracic and lumbar spine normal to inspection Skin General skin exam: no rashes or lesions noted Neuro General: patient oriented x3, gait normal, tone normal and moves all extremities Extrem General: Yes normal to inspection and Yes capillary refill normal Office Procedures Post Void Residual Post Residual Void Post Void Residual (PVR): 120 53512-Gwtw Void Residual by ultrasound Assessment & Plan Assessment & Plan (1) Overweight (BMI 25.0-29.9): Code(s): E66.3 - Overweight Category: Medical Plan Six-month follow-up repeat lab work Medications: New tirzepatide (weight loss) inject as instructed 15 mg (0.5 mL) subcut QWEEK 2 mL 5RF 28 days E66.3 - Overweight insulin syringe-needle U-100 As directed 10 ea 0RF E66.3 - Overweight, E29.1 - Testicular hypofunction Patient Instructions: This note is constructed using voice recognition software. While every effort has been made to ensure accuracy general forecaster errors may have been included. Imaging studies, laboratory and physical exam results were discussed and reviewed in detail. No major barriers to patient understanding were identified. An opportunity to ask questions regarding the treatment plan was provided. All questions were answered. The patient expressed understanding and agreement with the above treatment plan. The patient is aware they should contact our office by phone for worsening of their current condition or the appearance of new urologic symptoms. Compliance is encouraged with any medications and followup testing that is ordered. It is a privilege to participate in the urologic care of your patient. If you have any questions or concerns regarding treatment for the above conditions, or other urologic issues, please do not hesitate to contact me. The office telephone contact is [phone]. Sincerely, Dr Benny Banegas MD, LINA [facility] - Urology Compassionate Specialist Care for the Genitourinary System Coding Level of Care Code Est Pt Level 3 (87944) Diagnoses Overweight (BMI 25.0-29.9) E66.3 CPT Codes Post Residual Void - PVR CPT Code: 06819-Bgwb Void Residual by ultrasound ([id number])
== END 2025-07-23 09:43 | disposition home or self-care (01) ==
LOC: HO.HUSH 08:33
PROVIDERS: PCP Internal Medicine; Visit Provider Urology
DX: E66.3 Overweight (principal)
CPT/HCPCS: 99213

== ENCOUNTER → 2025-07-23 08:33 | Outpatient (BNVA) | payer OTHER, SELFPAY | PROVIDERS: PCP Internal Medicine; Visit Provider Urology | DX: E29.1 Testicular hypofunction (principal); E66.3 Overweight; R97.20 Elevated prostate specific antigen [PSA]; N52.9 Male erectile dysfunction, unspecified; Z79.899 Other long term (current) drug therapy | CPT/HCPCS: 51798 ==